=== PATIENT | male | born 2005 | race African-American/Black ===

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

== ENCOUNTER 2024-11-23 16:06 | Outpatient (CLI) | payer BC, SELFPAY | END 2024-11-23 16:07 | disposition home or self-care (01) | LOC: AMB 11-24 10:51 | PROVIDERS: Visit Provider Family Medicine | DX: R55 Syncope and collapse (principal); R11.2 Nausea with vomiting, unspecified; R50.9 Fever, unspecified | CPT/HCPCS: A0425; A0427 ==

== ENCOUNTER 2024-11-23 16:35 | Inpatient (IN) | payer BC, SELFPAY ==
[2024-11-23] VITALS (8 sets, daily range): BP systolic 97–113; BP diastolic 47–58; PULSE 72–125; RESP 18–28; TEMP 36.7–39.4; O2SAT 97–100; BMI 25.1; BMI 23.7
--- NOTE | 2024-11-23 16:57 | ED_ITS ---
HPI - General Adult General Time Seen by Provider: 16:57 Date Seen: 11/23/24 Chief complaint: Nausea/Vomiting Stated complaint: Vomiting Time Seen by Provider: 11/23/24 16:47 Source: patient, family (mom was on phone with him), EMS and RN notes reviewed Mode of arrival: EMS Limitations: no limitations History of Present Illness HPI narrative: This 19-year-old male is brought in by EMS from urgent care where the ambulance was called due to syncope/collapse. This 19-year-old male started with nausea vomiting and diarrhea overnight. He collapse in the waiting room. He was complaining of his legs being numb. Arrival here he was extremely tachypneic and hyperventilating. He was noted to be febrile. He is not coughing. It is just the nausea vomiting diarrhea. He did not take his temperature but has felt chilled and cold. No abdominal pain. He is a college student at [employer]. He was home in [place] not too long ago but no other travel. No known ill contacts. He did take some ibuprofen around 10:00 a.m. this morning. EMS did give him 500 mL normal saline and 4 mg IV Zofran. He continues to feel nauseated. His mom is on the phone with him as I talked to him and evaluated him. Related Data Home Medications ?Medication ?Instructions ?Recorded ?Confirmed minocycline 50 mg capsule 50 mg PO QDAY 10/02/23 04/12/24 polyethylene glycol 3350 17 4 g PO ONCE 10/02/23 04/12/24 gram/dose oral powder (Miralax) Previous Rx's ?Medication ?Instructions ?Recorded ondansetron 4 mg disintegrating 4 mg PO Q8H PRN nausea and 10/02/23 tablet vomiting #14 tabs Allergies Allergy/AdvReac Type Severity Reaction Status Date / Time No Known Drug Allergies Allergy Verified 04/12/24 15:40 Review of Systems Status of ROS: Reports: 6 or more systems reviewed and unremarkable except as noted in History and below [facility] Medical History No significant past medical history Surgical History No significant past surgical history Social History What is your current living situation?: I presently have a place to live Problems where you live: no known problems Problems where you live details: n/a In the past 12 months, utilities in danger of being shut off: no In past 12 months, lack of transportation kept you from medical appts, meetings, work, or getting things needed for daily living: no In the past 12 mos, have been you worried that your food would run out before you had money to buy more?: never true In the past 12 mos, the food you bought just didn't last and you didn't have money to buy more?: never true Highest level of school completed/degree received: some college, no degree Smoking Status: Never smoker Second hand tobacco smoke exposure: No How often do you have a drink containing alcohol: never How often do you have six or more drinks on one occasion: Never AUDIT-C Alcohol total score: 0 Non-prescribed substance use: denies use Caffeine: No How often does anyone, including family, friends and others, physically hurt you : never How often does anyone, including family, friends and others, insult or talk down to you: never How often does anyone, including family, friends and others, threaten you with harm: never How often does anyone, including family, friends and others, scream or curse at you: never service: No Exam Const: Vital Signs, click to edit/add: Vital Signs - 24 hr 11/23/24 16:45 11/23/24 16:58 11/23/24 17:27 Temperature 101.0 F H Pulse Rate [Pulse Oximeter] 125 H 100 Respiratory Rate 28 H 20 Blood Pressure [Ri ght Upper Arm] 110/51 L 110/51 L Pulse Oximetry 100 100 100 Oxygen Delivery Me thod Room Air Room Air 11/23/24 17:46 Temperature 102.9 F H Pulse Rate [Pulse Oximeter] Respiratory Rate Blood Pressure [Ri ght Upper Arm] Pulse Oximetry Oxygen Delivery Me thod This 19-year-old male is retching before I come in, having dry heaves, stops while I am in with him but he complains of ongoing nausea. He is alert, interactive, no apparent distress but looks like he does not feel good. Skin is warm feeling but dry, no rash noted. Sclera clear, conjugate gaze. Oropharynx dry mucosa, lips dry. Neck is supple, no adenopathy. Lungs are clear, good air entry, no wheezing or crackles. He has generalized tenderness over the paraspinous area throughout his back. No point tenderness over the midline noted. Abdomen is slender, soft, nondistended, bowel sounds present, no tenderness, no rebound or guarding noted. He can move his arms and legs, no focal neurologic deficits. Documenting provider has reviewed patient's vital signs: yes Course Course ED Course: This patient has febrile illness with nausea vomiting and diarrhea. Could be viral gastroenteritis, could be 1 of the viral etiologies such as influenza or even COVID. I have seen influenza B and COVID recently. Will give him further IV fluids, may need further antiemetic treatment. Do not feel that he needs any imaging at this time. Will get basic labs and check triple viral swab. We will do further workup or interventions as deemed necessary based on evaluation here. Will also give him some IV Toradol to see if it helps with his myalgias. Will order Tylenol but have nursing staff wait until his nausea and vomiting have improved. Do believe he needs this for fever control. Reevaluation(s) Time of Reevaluation #1: 17:04 Reevaluation #1: Patient is continuing to retch despite the 4 mg IV Zofran from EMS. I will give him another 4 mg IV Zofran for full dose loading, but also will give 0.5 mg IV Ativan. Time of Reevaluation #2: 17:58 Reevaluation #2: Have reviewed with patient his labs with creatinine 1.9, dehydration based on chemistries with low bicarb. Will order a 2 L of lactated Ringer's. He understands I would like to see urinalysis. We are going to proceed with CT imaging just to ensure no obstructive etiology. He has no history of kidney stones. He is feeling improved with diminished nausea now. Time of Reevaluation #3: 18:52 Reevaluation #3: Have reviewed with hospitalist Dr. Amador. With the acute kidney injury and dehydration, do think this patient warrants observation and ongoing IV fluids. It appears that this is a viral gastroenteritis. He does not have any obstructing kidney stones. Still awaiting collection of urinalysis, may need more fluids. She does accept patient. Vital Signs Vital signs: Initial Vital Signs Temperature 101.0 F H 11/23/24 16:45 Temperature Source Temporal Artery Scan 11/23/24 16:45 Pulse Rate 125 H 11/23/24 16:45 Pulse Rhythm Regular 11/23/24 16:45 Respiratory Rate 28 H 11/23/24 16:45 Blood Pressure 110/51 L 11/23/24 16:45 Blood Pressure Mean 70 11/23/24 16:45 Pulse Oximetry 100 11/23/24 16:45 Oxygen Delivery Method Room Air 11/23/24 16:45 Vital Signs Temperature 101.0 F H 11/23/24 16:45 Pulse Rate 125 H 11/23/24 16:45 Respiratory Rate 28 H 11/23/24 16:45 Blood Pressure 110/51 L 11/23/24 16:45 Pulse Oximetry 100 11/23/24 16:45 Oxygen Delivery Method Room Air 11/23/24 16:45 Temperature 98.0 F 11/23/24 22:43 Pulse Rate 72 11/23/24 22:43 Respiratory Rate 18 11/23/24 22:43 Blood Pressure 97/47 L 11/23/24 22:43 Pulse Oximetry 97 11/23/24 22:43 Oxygen Delivery Method Room Air 11/23/24 21:13 Medications Administered Medications: Generic Name Dose Route Start Last Admin Trade Name Freq PRN Reason Stop Dose Admin Ceftriaxone Sodium 1 gm/ 100 mls @ 200 mls/hr 11/23/24 22:00 11/23/24 22:37 Sodium Chloride IVPB Infused Q24H OLU Infusion Sodium Chloride 1,000 mls @ 125 mls/hr 11/23/24 22:13 11/23/24 22:39 0.9 % Sodium Chloride 1000 Ml IV 125 mls/hr .Q8H OLU Infusion Sodium Chloride 5 ml 11/23/24 21:00 11/23/24 20:34 Sodium Chloride 0.9 % (Flush) 10 Ml Syringe IVF 5 ml BID OLU Administration Discontinued Medications Generic Name Dose Route Start Last Admin Trade Name Freq PRN Reason Stop Dose Admin Acetaminophen 1,000 mg 11/23/24 17:31 11/23/24 17:46 Acetaminophen 500 Mg Tablet PO 11/23/24 17:32 1,000 mg ONCE ONE Administration Sodium Chloride 1,000 mls @ 1,000 mls/hr 11/23/24 16:58 11/23/24 18:31 0.9 % Sodium Chloride 1000 Ml IV 11/23/24 17:57 Infused .Q1H OLU Infusion Lactated Ringer's 1,000 mls @ 500 mls/hr 11/23/24 18:03 11/23/24 20:30 Lactated Ringers 1000 Ml IV 11/23/24 20:02 Infused .Q2H OLU Infusion Sodium Chloride 1,000 mls @ 100 mls/hr 11/23/24 19:53 11/23/24 22:37 0.9 % Sodium Chloride 1000 Ml IV Infused .Q10H OLU Infusion Ketorolac Tromethamine 15 mg 11/23/24 16:58 11/23/24 17:12 Ketorolac 15 Mg/Ml Inj IVP 11/23/24 16:59 15 mg ONCE ONE Administration Lorazepam 0.5 mg 11/23/24 17:04 11/23/24 17:23 Lorazepam 2 Mg/Ml Inj IVP 11/23/24 17:05 0.5 mg ONCE ONE Administration Ondansetron HCl 4 mg 11/23/24 16:58 11/23/24 17:13 Ondansetron 2 Mg/Ml Inj IVP 11/23/24 16:59 4 mg ONCE ONE Administration Medical Decision Making Lab Data Lab results reviewed: Yes I reviewed the patient's lab results Labs: Lab Results 11/23/24 Range/Units 17:15 WBC 12.44 H (4.50-11.00) K/uL RBC 5.04 (4.30-5.90) m/uL Hgb 14.6 (13.5-17.5) gm/dL Hct 42.6 (37.0-53.0) % MCV 85 (80-100) fL MCH 29 (26-34) pg MCHC 34 (32-36) gm/dL RDW Coeff of Laxmi 12.7 (11.5-15.5) % Plt Count 269 (140-440) K/uL Neut % (Auto) 89.4 H (42.0-72.0) % Lymph % (Auto) 4.9 L (20-44) % Douglas % (Auto) 5.0 (0.0-11.0) % Eos % (Auto) 0.0 (0.0-7.0) % Baso % (Auto) 0.2 (0.0-3.0) % Neut # (Auto) 11.10 H (1.7-7.0) K/uL Lymph # (Auto) 0.60 L (0.90-2.90) K/uL Douglas # (Auto) 0.60 (0.00-0.90) K/UL Eos # (Auto) 0.00 (0.00-0.50) K/uL Baso # (Auto) 0.00 (0.00-0.30) K/uL Abs Immat Gran (auto) 0.10 (0.00-0.30) K/uL Imm/Tot Granulo (auto) 0.5 % Sodium 137 (135-149) mmol/L Potassium 3.8 (3.6-5.1) mmol/L Chloride 105 (96-114) mmol/L Carbon Dioxide 16 L (20-32) mmol/L Anion Gap 16 H (7-15) mEq/L BUN 16 (5-24) mg/dL Creatinine 1.9 H (0.5-1.5) mg/dL Estimated Creat Clear 60.00 Estimated GFR 51 ml/min Glucose 120 H (60-115) mg/dL Lactate 2.2 H (0.5-1.9) mmol/L Calcium 9.3 (8.4-10.6) mg/dL Total Bilirubin 1.2 (0.1-1.5) mg/dL AST 33 (12-35) U/L ALT 20 (4-50) U/L Alkaline Phosphatase 85 (40-150) U/L C-Reactive Protein 3.5 H (0.5-1.0) mg/dL Total Protein 7.3 (6.0-8.3) g/dL Albumin 4.7 (3.3-5.0) g/dL Lipase 48 (23-300) U/L SARS-CoV-2 (PCR) Negative SARS-CoV-2 (Negative) Influenza Type A (PCR) Negative PCR FLU A (Negative) Influenza Type B (PCR) Negative PCR FLU B (Negative) RSV (PCR) Negative PCR RSV (Negative) Imaging Data CT scan - abdomen: Attestation: I have reviewed the pertinent imaging results. Radiologist's impression: Patient: MARIMAR FRITZ Facility:?[facility] Patient ID:?[id number] Site Patient ID:?[id number]. Site :?[id number] Study:?CT-Abdomen/Pelvis WITHOUT-11/23/2024 6:15:15 PM Ordering Physician:Fabien Robbins Final Report: INDICATION: Fever, TALISHA, rule out obstruction. TECHNIQUE: CT of the abdomen and pelvis without IV contrast. Coronal and sagittal reconstructions. COMPARISON: CT of the abdomen and pelvis 03/19/2023. FINDINGS: Lower chest: Unremarkable. Liver: Unremarkable. Gallbladder and bile ducts: Unremarkable. No biliary dilatation. Spleen: Unremarkable. Pancreas: Unremarkable. Adrenal glands: Unremarkable. Kidneys, Ureters, and Bladder: No hydronephrosis or ureteral dilation. No obstructing urinary calculi identified. Tiny nonobstructing right renal caliceal stone. No bladder wall thickening. Reproductive organs: Unremarkable noncontrast appearance. GI tract/Peritoneum: No small bowel dilation. The ascending colon is fluid- filled, with formed stool in the rectosigmoid colon. No significant colonic wall thickening appreciated. A possible normal appendix is identified medial to the cecum. No intraperitoneal free air or fluid. Vasculature: Abdominal aorta is normal in caliber. Lymph nodes: No lymphadenopathy. Abdominal Wall: Unremarkable. Bones: Bilateral L5 pars interarticularis defects without spondylolisthesis. IMPRESSION: 1. No hydronephrosis or obstructing urinary calculi. Tiny nonobstructing right renal caliceal stone. 2. Fluid-filled ascending colon which could indicate an underlying diarrheal illness. No evidence of bowel obstruction. 3. No other acute findings in the abdomen or pelvis on this noncontrast exam. Please note that all CT scans at this facility use dose modulation, iterative reconstruction, and/or weight-based dosing when appropriate to reduce radiation dose to as low as reasonably achievable. Dictated by Yasmin Griffin MD @ 11/23/2024 6:30:28 PM (Electronic Signature) Discharge Plan Discharge Clinical Impression: Gastroenteritis, Dehydration, Acute kidney injury Patient Disposition: Admitted As Observation
[2024-11-23] MEDS: 0.9 % SODIUM CHLORIDE 1000 ml 1,000 ML IV (17:08)
[2024-11-23] MEDS: KETOROLAC 15 MG/ML inj IVP (17:12)
[2024-11-23] MEDS: ONDANSETRON 2 MG/ML inj 4 MG IVP (17:13)
[2024-11-23 17:23] LABS: Lactate* 2.2 mmol/L (0.5-1.9)
[2024-11-23] MEDS: LORazepam 2 MG/ML inj 0.5 MG IVP (17:23)
[2024-11-23 17:25] LABS: Basophils Percent Auto 0.2 % (0.0-3.0); Hematocrit* 42.6 % (37.0-53.0); Hemoglobin* 14.6 gm/dL (13.5-17.5); Immature Granulocytes Pct Auto 0.5 %; Lymphocytes Percent Auto 4.9 % (20-44); Mean Corpuscular HGB Conc 34 gm/dL (32-36); Mean Corpuscular Hemoglobin 29 pg (26-34); Mean Corpuscular Volume 85 fL (80-100); Neutrophils Percent Auto 89.4 % (42.0-72.0); Platelet Count* 269 K/uL (140-440); RDW Coefficient of Variation % 12.7 % (11.5-15.5); Red Blood Count* 5.04 m/uL (4.30-5.90); White Blood Count* 12.44 K/uL (4.50-11.00)
[2024-11-23 17:31] LABS: Slide Review Reflex No
[2024-11-23 17:36] LABS: Chloride* 105 mmol/L (96-114)
[2024-11-23 17:37] LABS: Albumin* 4.7 g/dL (3.3-5.0); Potassium* 3.8 mmol/L (3.6-5.1); Sodium* 137 mmol/L (135-149)
[2024-11-23 17:39] LABS: Blood Urea Nitrogen* 16 mg/dL (5-24); Creatinine* 1.9 mg/dL (0.5-1.5); Estimated Glomerular Filt Rate 51 ml/min
[2024-11-23 17:40] LABS: Alanine Aminotransferase* 20 U/L (4-50); Alkaline Phosphatase* 85 U/L (40-150); Anion Gap 16 mEq/L (7-15); Aspartate Amino Transferase* 33 U/L (12-35); Bilirubin Total* 1.2 mg/dL (0.1-1.5); Calcium* 9.3 mg/dL (8.4-10.6); Carbon Dioxide* 16 mmol/L (20-32); Glucose* 120 mg/dL (60-115); Lipase* 48 U/L (23-300); Total Protein* 7.3 g/dL (6.0-8.3)
[2024-11-23 17:43] LABS: C Reactive Protein* 3.5 mg/dL (0.5-1.0)
[2024-11-23] MEDS: ACETAMINOPHEN 500 MG TABLET 1000 MG PO (17:46)
--- NOTE | 2024-11-23 17:57 | CRLHL7_ITS ---
For Patients: As a result of the Cures Act, medical imaging exams and procedure reports are released immediately into your electronic medical record. You may view this report before your referring provider. If you have questions, please contact your health care provider. INDICATION: Fever, TALISHA, rule out obstruction. TECHNIQUE: CT of the abdomen and pelvis without IV contrast. Coronal and sagittal reconstructions. COMPARISON: CT of the abdomen and pelvis 03/19/2023. FINDINGS: Lower chest: Unremarkable. Liver: Unremarkable. Gallbladder and bile ducts: Unremarkable. No biliary dilatation. Spleen: Unremarkable. Pancreas: Unremarkable. Adrenal glands: Unremarkable. Kidneys, Ureters, and Bladder: No hydronephrosis or ureteral dilation. No obstructing urinary calculi identified. Tiny nonobstructing right renal caliceal stone. No bladder wall thickening. Reproductive organs: Unremarkable noncontrast appearance. GI tract/Peritoneum: No small bowel dilation. The ascending colon is fluid-filled, with formed stool in the rectosigmoid colon. No significant colonic wall thickening appreciated. A possible normal appendix is identified medial to the cecum. No intraperitoneal free air or fluid. Vasculature: Abdominal aorta is normal in caliber. Lymph nodes: No lymphadenopathy. Abdominal Wall: Unremarkable. Bones: Bilateral L5 pars interarticularis defects without spondylolisthesis. IMPRESSION: 1. No hydronephrosis or obstructing urinary calculi. Tiny nonobstructing right renal caliceal stone. 2. Fluid-filled ascending colon which could indicate an underlying diarrheal illness. No evidence of bowel obstruction. 3. No other acute findings in the abdomen or pelvis on this noncontrast exam. Please note that all CT scans at this facility use dose modulation, iterative reconstruction, and/or weight-based dosing when appropriate to reduce radiation dose to as low as reasonably achievable. Dictated by Yasmin Griffin MD @ 11/23/2024 6:30:28 PM (Electronically Signed)
[2024-11-23 18:03] LABS: PCR FLU A Negative PCR FLU A (Negative); PCR FLU B Negative PCR FLU B (Negative); PCR RSV Negative PCR RSV (Negative); SARS PCR* Negative SARS-CoV-2 (Negative)
[2024-11-23] MEDS: LACTATED RINGERS 1000 ML 1,000 ML 500 ML IV (18:26)
--- NOTE | 2024-11-23 19:52 | P.IMHP_ITS ---
Assessment and Plan Assessment and plan (1) Sepsis: Problem comment: -patient meets criteria for sepsis with white blood cells and tachycardia -lactic acid elevated at 2.2 -ordered blood cultures -status post 2 L IV fluids -maintenance IV fluid ordered at 100 mL/hour. -will start IV antibiotics , ceftriaxone 1 g, as patient is septic. Will deescalate once patient improves, will follow up blood cultures. -follow-up labs Status: Acute (2) Acute kidney injury: Problem comment: Likely secondary to dehydration Status post 2 L IV fluid bolus Maintenance IV fluid at 100 mL/hour Repeat labs at a.m. Status: Acute (3) Nausea vomiting and diarrhea: Problem comment: Ordered GI pathogen PCR Contact precautions Status: Acute (4) Fever: Problem comment: Likely viral infection Ordered urinalysis Ordered GI pathogen panel Status: Acute (5) Syncope: Problem comment: Patient has lightheadedness, likely secondary to volume loss Ordered orthostatic vital signs IV fluids Status: Acute (6) Dehydration: Status: Acute Total Time Spent Total Time Spent: Time spent: Today I spent 75 minutes seeing the patient, discussing the patient with ER staff, reviewing Expanse and EPIC notes/diagnostics, discussing the care plan with our care time that includes social work, PT/OT, pharmacy, RT, assisted and documenting my impressions and plan in the medical record. Hospitalist- H&P: HPI History of Present Illness Date Seen: 11/23/24 Chief complaint: Vomiting Narrative: Peter Krishnan is a 19 year old male student without significant past medical history who presents to the ED due to fainting, nausea vomiting and diarrhea for 1 day. He states that he had about 3 watery bowel movements without blood or mucus. He also added that he had nausea and had been vomiting more than 10 times. Patient states that he has some abdominal discomfort but not pain, no sick contacts and no history of travel outside the states. No history of chronic diarrhea. No history of STDs. No history of alcohol, street drugs or marijuana use. Denies neck stiffness or photophobia. At the ED, Patient was found to be feverish with temperature of 102.9, tachycardic and acidotic with low bicarb at 16, mild elevation of the anion gap, elevated lactic acid at 2.2 and elevated white blood cells. CT of the abdomen without contrast did not show any acute pathology. Patient was given 2 L of IV fluids at the ED in addition to 1 dose of Ativan and Zofran because he was tachypneic upon presentation, which has improved after Ativan. Review of Systems Status of ROS: Reports: 6 or more systems reviewed and unremarkable except as noted in History and below [facility] Medical History No significant past medical history Surgical History No significant past surgical history Social History What is your current living situation?: I presently have a place to live Problems where you live: no known problems Problems where you live details: n/a In the past 12 months, utilities in danger of being shut off: no In past 12 months, lack of transportation kept you from medical appts, meetings, work, or getting things needed for daily living: no In the past 12 mos, have been you worried that your food would run out before you had money to buy more?: never true In the past 12 mos, the food you bought just didn't last and you didn't have money to buy more?: never true Highest level of school completed/degree received: some college, no degree Smoking Status: Never smoker Second hand tobacco smoke exposure: No How often do you have a drink containing alcohol: never How often do you have six or more drinks on one occasion: Never AUDIT-C Alcohol total score: 0 Non-prescribed substance use: denies use Caffeine: No How often does anyone, including family, friends and others, physically hurt you : never How often does anyone, including family, friends and others, insult or talk down to you: never How often does anyone, including family, friends and others, threaten you with harm: never How often does anyone, including family, friends and others, scream or curse at you: never service: No Meds Home Medications and Allergies Home Medications ?Medication ?Instructions ?Recorded ?Confirmed ?Type minocycline 50 mg capsule 50 mg PO QDAY 10/02/23 04/12/24 History polyethylene glycol 3350 17 4 g PO ONCE 10/02/23 04/12/24 History gram/dose oral powder (Miralax) Allergies Allergy/AdvReac Type Severity Reaction Status Date / Time No Known Drug Allergies Allergy Verified 04/12/24 15:40 Exam Narrative: Exam Narrative: Physical exam GENERAL: Comfortable, no acute distress. HEAD AND NECK: Atraumatic, normocephalic CARDIOVASCULAR: RRR. Normal S1, S2. No murmurs. RESPIRATORY: Clear to auscultation B/L. Good air entry B/L. No wheezes or rhonchi. GASTROINTESTINAL: Not distended, not tender to palpation. NEUROLOGY: Alert, awake, oriented X 3. Normal speech. PSYCH: Normal mood, normal affect. Const: Vital Signs, click to edit/add: Vital Signs - 24 hr 11/23/24 16:45 11/23/24 16:58 11/23/24 17:27 Temperature 101.0 F H Pulse Rate [Pulse Oximeter] 125 H 100 Respiratory Rate 28 H 20 Blood Pressure [Ri ght Upper Arm] 110/51 L 110/51 L Pulse Oximetry 100 100 100 Oxygen Delivery Wa thod Room Air Room Air 11/23/24 17:46 Temperature 102.9 F H Pulse Rate [Pulse Oximeter] Respiratory Rate Blood Pressure [Ri ght Upper Arm] Pulse [facility]ximetry [facility]: Result Labs Labs: Short CBC 11/23/24 Range/Units 17:15 WBC 12.44 H (4.50-11.00) K/uL Hgb 14.6 (13.5-17.5) gm/dL Hct 42.6 (37.0-53.0) % Plt Count 269 (140-440) K/uL BMP 11/23/24 17:15 Sodium 137 Potassium 3.8 Chloride 105 Carbon Dioxide 16 L BUN 16 Creatinine 1.9 H Glucose 120 H Calcium 9.3 Liver Function 11/23/24 Range/Units 17:15 Total Bilirubin 1.2 (0.1-1.5) mg/dL AST 33 (12-35) U/L ALT 20 (4-50) U/L Alkaline Phosphatase 85 (40-150) U/L Albumin 4.7 (3.3-5.0) g/dL Imaging CT scan - abdomen: Radiologist's impression: INDICATION: Fever, TALISHA, rule out obstruction. TECHNIQUE: CT of the abdomen and pelvis without IV contrast. Coronal and sagittal reconstructions. COMPARISON: CT of the abdomen and pelvis 03/19/2023. FINDINGS: Lower chest: Unremarkable. Liver: Unremarkable. Gallbladder and bile ducts: Unremarkable. No biliary dilatation. Spleen: Unremarkable. Pancreas: Unremarkable. Adrenal glands: Unremarkable. Kidneys, Ureters, and Bladder: No hydronephrosis or ureteral dilation. No obstructing urinary calculi identified. Tiny nonobstructing right renal caliceal stone. No bladder wall thickening. Reproductive organs: Unremarkable noncontrast appearance. GI tract/Peritoneum: No small bowel dilation. The ascending colon is fluid-filled, with formed stool in the rectosigmoid colon. No significant colonic wall thickening appreciated. A possible normal appendix is identified medial to the cecum. No intraperitoneal free air or fluid. Vasculature: Abdominal aorta is normal in caliber. Lymph nodes: No lymphadenopathy. Abdominal Wall: Unremarkable. Bones: Bilateral L5 pars interarticularis defects without spondylolisthesis. IMPRESSION: 1. No hydronephrosis or obstructing urinary calculi. Tiny nonobstructing right renal caliceal stone. 2. Fluid-filled ascending colon which could indicate an underlying diarrheal illness. No evidence of bowel obstruction. 3. No other acute findings in the abdomen or pelvis on this noncontrast exam. Please note that all CT scans at this facility use dose modulation, iterative reconstruction, and/or weight-based dosing when appropriate to reduce radiation dose to as low as reasonably achievable. Dictated by Yasmin Griffin MD @ 11/23/2024 6:30:28 PM
[2024-11-23] MEDS: 0.9 % SODIUM CHLORIDE 1000 ml 1,000 ML 100 ML IV (20:31)
[2024-11-23] MEDS: SODIUM CHLORIDE 0.9 % (FLUSH) 10 ML SYRINGE 5 ML IVF (20:34)
[2024-11-23 21:10] LABS: Appearance Urine Clear (Clear); Bilirubin Urine Negative (Negative); Blood Urine Negative (Negative); Color Urine Yellow (Yellow); Glucose Urine Negative (Negative); Ketones Urine 2+ (Negative); Leukocyte Esterase Urine Negative (Negative); Nitrite Urine Negative (Negative); Protein Urine Trace (Negative); Specific Gravity Urine 1.015 (1.000-1.030); Urobilinogen Urine 0.2 (0.2-1.0); pH Urine 8.5 (5.0-8.5)
[2024-11-23 21:16] LABS: Mucus Urine Few; RBC Urine 0-2 (0-2); Squamous Epithelial Cell Urine Few (None-Few); WBC Urine 0-2 (0-5)
[2024-11-23] MEDS: cefTRIAXone 1 GM in 0.9 % SODIUM CHLORIDE Mini-bag 100 ML IVPB (22:05)
[2024-11-23] MEDS: 0.9 % SODIUM CHLORIDE 1000 ml 1,000 ML 125 ML IV (22:38)
[2024-11-24] VITALS (13 sets, daily range): BP systolic 102–129; BP diastolic 50–70; PULSE 64–126; RESP 16–22; TEMP 36.4–39.3; O2SAT 97–100
[2024-11-24] MEDS: ONDANSETRON ODT 4 MG TAB PO (00:43)
[2024-11-24] MEDS: ONDANSETRON 2 MG/ML inj 4 MG IVP ×2 (02:00→11:16)
[2024-11-24] MEDS: LORazepam 2 MG/ML inj 0.5 MG IVP (02:53)
[2024-11-24] MEDS: ACETAMINOPHEN INJ 1,000 MG/100 ML VIAL 400 MG IVPB (02:54)
[2024-11-24] MEDS: 0.9 % SODIUM CHLORIDE 1000 ml 1,000 ML 125 ML IV ×3 (05:22→22:25)
--- NOTE | 2024-11-24 06:31 | PC.NURSE ---
arrived to the floor via wheelchair at 1930. A&O pleasant and cooperative. Upon initial assessment pt denies n/v but reports dizziness at rest. Dizziness persisted all shift. Hypotensive at times. MD updated. Overnight pt reported nausea and was dry heaving. See eMAR for intervention. Provider contacted for different antiemetic. See orders. Pt reported no change in nausea with IV zorfran. At this time pt spiked a fever of 102.7 w/ HR in 120s-130s. Provider updated. See new orders. Temp recheck 100.1. pt appears more comfortable and pt sates they are feeling better. Pt sitting up in bed talking in the phone at this time. Temp down to 97.9 this morning. Ambulated to bathroom once and was quite unsteady and dizzy. The rest of the night pt standing at bedside to use urinal. Bedside commode used to have a BM. Pt reports anxiety with feeling ill and with college finals approaching. Meal Temperer sat with pt and with deep breathing techniques. Updated mother, heath via phone last evening. Using call light appropriately.
[2024-11-24 06:40] LABS: Lactate* 0.7 mmol/L (0.5-1.9)
[2024-11-24 06:49] LABS: Hematocrit* 40.2 % (37.0-53.0); Hemoglobin* 13.5 gm/dL (13.5-17.5); Mean Corpuscular HGB Conc 34 gm/dL (32-36); Mean Corpuscular Hemoglobin 29 pg (26-34); Mean Corpuscular Volume 87 fL (80-100); Platelet Count* 218 K/uL (140-440)
[2024-11-24 06:53] LABS: Slide Review Reflex No
[2024-11-24 07:03] LABS: Albumin* 3.5 g/dL (3.3-5.0); Chloride* 109 mmol/L (96-114); Sodium* 138 mmol/L (135-149)
[2024-11-24 07:05] LABS: Blood Urea Nitrogen* 15 mg/dL (5-24); Creatinine* 1.4 mg/dL (0.5-1.5); Est. Creatinine Clearance* 81.43; Estimated Glomerular Filt Rate 74 ml/min
[2024-11-24 07:06] LABS: Alanine Aminotransferase* 14 U/L (4-50); Alkaline Phosphatase* 59 U/L (40-150); Anion Gap 7 mEq/L (7-15); Aspartate Amino Transferase* 29 U/L (12-35); Bilirubin Total* 0.7 mg/dL (0.1-1.5); Calcium* 8.2 mg/dL (8.4-10.6); Carbon Dioxide* 22 mmol/L (20-32); Glucose* 111 mg/dL (60-115); Magnesium* 1.9 mg/dL (1.5-2.6); Total Protein* 5.8 g/dL (6.0-8.3)
[2024-11-24] MEDS: SODIUM CHLORIDE 0.9 % (FLUSH) 10 ML SYRINGE 5 ML IVF (08:24)
[2024-11-24] MEDS: PROCHLORPERAZINE 5 MG/ML VIAL 10 MG IV (08:24)
[2024-11-24 08:46] LABS: Amphetamine Screen Urine Negative (Negative); Barbiturate Screen Urine Negative (Negative); Benzodiazepines Screen Urine Negative (Negative); Cannabinoid Screen Urine Negative (Negative); Cocaine Screen Urine Negative (Negative); Methadone Screen Urine Negative (Negative); Methamphetamines Screen Urine Negative (Negative); Opiate Screen Urine Negative (Negative); Oxycodone Screen Urine Negative (Negative); Phencyclidine Screen Urine Negative (Negative); Tricyclic Antidepressant Urine Negative (Negative)
[2024-11-24] MEDS: AZITHROMYCIN 250 MG TABLET 1000 MG PO (09:39)
[2024-11-24 09:46] LABS: HIV 1/2/P24 Combo Screen* Negative (Negative)
[2024-11-24] MEDS: ACETAMINOPHEN 325 MG TABLET 650 MG PO (11:16)
--- NOTE | 2024-11-24 11:59 | P.IMPN_ITS ---
Assessment and Plan Assessment and plan (1) Sepsis: Problem comment: -source is likely either viral or bacterial gastroenteritis, potentially bacteremic -patient meets criteria for sepsis with white blood cells and tachycardia -lactic acid elevated at 2.2 initially and now is normal at 0.7 -2 blood cultures are negative to date -patient has had normal saline fluid resuscitation -patient has received 1 oral dose of azithromycin and continues to receive 1 g ceftriaxone Q 24 Status: Acute (2) Acute kidney injury: Problem comment: Likely secondary to pre renal azotemia Mostly resolved after fluid resuscitation, 1.9 down to 1.4 creatinine Status: Acute (3) Nausea vomiting and diarrhea: Problem comment: Ordered GI pathogen PCR Contact precautions Status: Acute (4) Fever: Problem comment: Likely viral versus bacterial gastroenteritis -negative respiratory triple swab and negative HIV Ordered urinalysis Ordered GI pathogen panel Status: Acute (5) Syncope: Problem comment: Resolved Patient has lightheadedness, likely secondary to volume loss Ordered orthostatic vital signs IV fluids Status: Acute (6) Dehydration: Problem comment: Resolving Status: Acute Subjective Date Seen: 11/24/24 Interval history: Day #: 2 CC: Sepsis presentation with acute gastroenteritis 24 HOUR UPDATE: Was admitted last evening. Last stool was around midnight. He has had some dry heaves, left vomiting since admission. He has remained on IV fluids. His lab abnormalities have mostly resolved. He still complaining of nausea, headache, weakness, anorexia and some stomach cramping. We are administering IV Compazine and Zofran, oral Tylenol. He received 1 dose of oral azithromycin. He continues to receive ceftriaxone IV. His fluids are normal saline at 125 mL/hour. He is not really attempted anything more than ice chips. He lives in the dorms at the local [facility]. Notable Labs, Micro, Rads, Interventions: T-max since midnight is 102.7. Currently 977. His blood pressures remain soft 106/63 108/56 He is less tachycardic now he is in the 60s Respiratory rate has come down to 16. He is satting 98% on room air. His white count is still elevated 12.4-12.5 His electrolytes are now normal. No evidence of acidosis. His creatinine is 1.4 His lactate has normalized His liver enzyme panel is normal. His CRP has increased from 3.5-13 His PCR for GI pathogens is pending. Neg HIV Objective: exhausted appearing; sleeping. Vitals: see above Lungs: Clear. Cardiac: S1S2. Abdomen: soft. No guarding. Disposition/Potential discharge - Home to the dorms when improved Today I spent 50minutes seeing the patient, reviewing Expanse and EPIC notes/diagnostics, discussing the care plan with our care time that includes social work, PT/OT, pharmacy, RT, mcc and documenting my impressions and plan in the medical record. Exam Const: Vital Signs, click to edit/add: Vital Signs - 24 hr 11/23/24 16:45 11/23/24 16:58 11/23/24 17:27 Temperature 101.0 F H Pulse Rate Pulse Rate [Pulse Oximeter] 125 H 100 Pulse Rate [orthos tatic lying] Pulse Rate [orthos tatic sitting] Pulse Rate [orthos tatic standing] Respiratory Rate 28 H 20 Blood Pressure [Ri ght Arm] Blood Pressure [Ri ght Upper Arm] 110/51 L 110/51 L Blood Pressure [or thostatic lying] Blood Pressure [or thostatic sitting] Blood Pressure [or thostatic standing ] Pulse Oximetry 100 100 100 Oxygen Delivery Me thod Room Air Room Air 11/23/24 17:46 11/23/24 21:13 11/23/24 21:20 Temperature 102.9 F H 98.5 F Pulse Rate Pulse Rate [Pulse Oximeter] 90 Pulse Rate [orthos tatic lying] 84 Pulse Rate [orthos tatic sitting] 96 Pulse Rate [orthos tatic standing] 89 Respiratory Rate 20 Blood Pressure [Ri ght Arm] Blood Pressure [Ri ght Upper Arm] Blood Pressure [or thostatic lying] 103/47 L Blood Pressure [or thostatic sitting] 113/58 L Blood Pressure [or thostatic standing ] 113/56 L Pulse Oximetry 100 Oxygen Delivery Me thod Room Air 11/23/24 22:40 11/23/24 22:43 11/24/24 01:23 Temperature 98.0 F 98.6 F Pulse Rate 72 Pulse Rate [Pulse Oximeter] 72 117 H Pulse Rate [orthos tatic lying] Pulse Rate [orthos tatic sitting] Pulse Rate [orthos tatic standing] Respiratory Rate 18 20 Blood Pressure [Ri ght Arm] 97/47 L 129/70 Blood Pressure [Ri ght Upper Arm] Blood Pressure [or thostatic lying] Blood Pressure [or thostatic sitting] Blood Pressure [or thostatic standing ] Pulse Oximetry 97 [facility] 11/24/24 02:24 11/24/24 02:54 11/24/24 03:53 Temperature 102.7 F H 102.7 F H 100.1 F H Pulse Rate Pulse Rate [Pulse Oximeter] 126 H 95 Pulse Rate [orthos tatic lying] Pulse Rate [orthos tatic sitting] Pulse Rate [orthos tatic standing] Respiratory Rate 22 Blood Pressure [Ri ght Arm] 104/58 L Blood Pressure [Ri ght Upper Arm] Blood Pressure [or thostatic lying] Blood Pressure [or thostatic sitting] Blood Pressure [or thostatic standing ] Pulse Oximetry [facility] 11/24/24 03:54 11/24/24 06:17 11/24/24 07:00 Temperature 100.1 F H 97.9 F Pulse Rate 67 Pulse Rate [Pulse Oximeter] 69 Pulse Rate [orthos tatic lying] Pulse Rate [orthos tatic sitting] Pulse Rate [orthos tatic standing] Respiratory Rate Blood Pressure [Ri ght Arm] Blood Pressure [Ri ght Upper Arm] Blood Pressure [or thostatic lying] Blood Pressure [or thostatic sitting] Blood Pressure [or thostatic standing ] Pulse Oximetry Oxygen Delivery [facility] 11/24/24 07:00 11/24/24 11:16 Temperature 97.5 F L 97.7 F Pulse Rate Pulse Rate [Pulse Oximeter] 78 Pulse Rate [orthos tatic lying] Pulse Rate [orthos tatic sitting] Pulse Rate [orthos tatic standing] Respiratory Rate 18 Blood Pressure [Ri ght Arm] 108/56 L Blood Pressure [Ri ght Upper Arm] Blood Pressure [or thostatic lying] Blood Pressure [or thostatic sitting] Blood Pressure [or thostatic standing ] Pulse Oximetry 98 [facility] Labs: Laboratory Results - last 24 hr 11/23/24 11/23/24 11/23/24 17:15 17:56 Unknown WBC 12.44 H RBC 5.04 Hgb 14.6 Hct 42.6 MCV 85 MCH 29 MCHC 34 RDW Coeff of Laxmi 12.7 Plt Count 269 Neut % (Auto) 89.4 H Lymph % (Auto) 4.9 L [place] % (Auto) 5.0 Eos % (Auto) 0.0 Baso % (Auto) 0.2 Neut # (Auto) 11.10 H Lymph # (Auto) 0.60 L [place] # (Auto) 0.60 Eos # (Auto) 0.00 Baso # (Auto) 0.00 Abs Immat Gran (auto) 0.10 Imm/Tot Granulo (auto) 0.5 Sodium 137 Potassium 3.8 Chloride 105 Carbon Dioxide 16 L Anion Gap 16 H BUN 16 Creatinine 1.9 H Estimated Creat Clear 60.00 Estimated GFR 51 Glucose 120 H Lactate 2.2 H Calcium 9.3 Magnesium Total Bilirubin 1.2 AST 33 ALT 20 Alkaline Phosphatase 85 C-Reactive Protein 3.5 H Total Protein 7.3 Albumin 4.7 Lipase 48 Urine Color Yellow Urine Appearance Clear Urine pH 8.5 Ur Specific [place] 1.015 Urine Protein Trace A Urine Glucose (UA) Negative Urine Ketones 2+ A Urine Blood Negative Urine Nitrite Negative Urine Bilirubin Negative Urine Urobilinogen 0.2 Ur Leukocyte Esterase Negative Urine RBC 0-2 Urine WBC 0-2 Ur Squamous Epith Cells Few Urine Bacteria None Urine Mucus Few A Urine Opiates Screen Negative Ur Oxycodone Screen Negative Urine Methadone Screen Negative Ur Barbiturates Screen Negative U Tricyclic Antidepress Negative Ur Phencyclidine Scrn Negative Ur Amphetamines Screen Negative U Methamphetamines Scrn Negative U Benzodiazepines Scrn Negative Urine Cocaine Screen Negative U Marijuana (THC) Screen Negative Ur Drug Screen Comment See Note SARS-CoV-2 (PCR) Negative SARS-CoV-2 HIV 1&2 Ab/P24 Ag 4thGn Influenza Type A (PCR) Negative PCR FLU A Influenza Type B (PCR) Negative PCR FLU B RSV (PCR) Negative PCR RSV Lab Acknowledgement 11/24/24 11/24/24 06:33 08:09 WBC 12.50 H RBC 4.60 Hgb 13.5 Hct 40.2 MCV 87 MCH 29 MCHC 34 RDW Coeff of Laxmi Plt Count 218 Neut % (Auto) Lymph % (Auto) [place] % (Auto) Eos % (Auto) Baso % (Auto) Neut # (Auto) Lymph # (Auto) [place] # (Auto) Eos # (Auto) Baso # (Auto) Abs Immat Gran (auto) Imm/Tot Granulo (auto) Sodium 138 Potassium 4.0 Chloride 109 Carbon Dioxide 22 Anion Gap 7 BUN 15 Creatinine 1.4 Estimated Creat Clear 81.43 Estimated GFR 74 Glucose 111 Lactate 0.7 Calcium 8.2 L Magnesium 1.9 Total Bilirubin 0.7 AST 29 ALT 14 Alkaline Phosphatase 59 C-Reactive Protein 13.0 H Total Protein 5.8 L Albumin 3.5 Lipase Urine Color Urine Appearance Urine pH Ur Specific [place] Urine Protein Urine Glucose (UA) Urine Ketones Urine Blood Urine Nitrite Urine Bilirubin Urine Urobilinogen Ur Leukocyte Esterase Urine RBC Urine WBC Ur Squamous Epith Cells Urine Bacteria Urine Mucus Urine Opiates Screen Ur Oxycodone Screen Urine Methadone Screen Ur Barbiturates Screen U Tricyclic Antidepress Ur Phencyclidine Scrn Ur Amphetamines Screen U Methamphetamines Scrn U Benzodiazepines Scrn Urine Cocaine Screen U Marijuana (THC) Screen Ur Drug Screen Comment SARS-CoV-2 (PCR) HIV 1&2 Ab/P24 Ag 4thGn Negative Influenza Type A (PCR) Influenza Type B (PCR) RSV (PCR) Lab Acknowledgement Test Added
--- NOTE | 2024-11-24 14:16 | PC.NURSE ---
End of Student Shift: Pt is A/Ox4, though very tired. Ax1 to the bathroom. VSS. Consistent complaint of headache at 9, and back pain at 7. Acetaminophen given, but no noted decrease in pain. Consistent nausea, IV Ondansetron and IV Compazine given, but little improvement noted although sleeping throughout the day. Stool sample collected and pending. Not tolerating activity well. Decreased appetite and next to no PO fluids. 0.9% NaCl flowing at 125 ml/hr. Call light within reach, but no calls. --Chon Woodard, SN
--- NOTE | 2024-11-24 19:33 | PC.NURSE ---
Nursing Care Hours: [id number] Pt this shift calm and cooperative. Drowsy and oriented. Pain reported to low back, tolerating well. VSS, afebrile. One loose stool. Ate popcicle without issue. Slept most all of shift. Pt mom here at beside.
--- NOTE | 2024-11-24 20:32 | P.CCN_ITS ---
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 I added Flagyl 500 mg IV Q 8 hours to treat Entamoeba histolytica infection May consider ID consult and an intraluminal agent such as paromomycin or iodoquinol after treatment w/ Flagyl to eliminate amoebic cysts from the intestine.
[2024-11-24] MEDS: metroNIDAZOLE 500 MG/100 ML PIGGYBACK 100 MG IVPB (21:26)
[2024-11-24] MEDS: cefTRIAXone 1 GM in 0.9 % SODIUM CHLORIDE Mini-bag 100 ML IVPB (22:21)
[2024-11-25] VITALS (9 sets, daily range): BP systolic 110–122; BP diastolic 60–74; PULSE 59–88; RESP 16; TEMP 36.5–37.2; O2SAT 99–100
[2024-11-25] MEDS: ACETAMINOPHEN 325 MG TABLET 650 MG PO ×3 (03:25→20:53)
--- NOTE | 2024-11-25 04:45 | PC.NURSE ---
Shift note: Patient has had 2x loose stool tonight. Pain level has been at 3/10 until this morning at 0330 when he reported 4/10 abdominal pain and headache. Tylenol 650mg given and was effective. No fever reported. Patient appeared sleepy and has been in bed throughout the night except when he needs to go BR. Mother has been patient throughout the night. Conscious, alert and oriented.
[2024-11-25] MEDS: metroNIDAZOLE 500 MG/100 ML PIGGYBACK 100 MG IVPB (04:53)
[2024-11-25 06:53] LABS: Basophils Absolute Auto 0.04 K/uL (0.00-0.30); Basophils Percent Auto 0.5 % (0.0-3.0); Eosinophils Absolute Auto 0.08 K/uL (0.00-0.50); Hematocrit* 39.4 % (37.0-53.0); Immature Granulocytes Abs Auto 0.02 K/uL (0.00-0.30); Immature Granulocytes Pct Auto 0.2 %; Lymphocytes Absolute Auto 1.99 K/uL (0.90-2.90); Lymphocytes Percent Auto 23.7 % (20-44); Mean Corpuscular HGB Conc 33 gm/dL (32-36); Mean Corpuscular Hemoglobin 29 pg (26-34); Mean Corpuscular Volume 88 fL (80-100); Monocytes Percent Auto 9.4 % (0.0-11.0); Neutrophils Absolute Auto 5.47 K/uL (1.7-7.0); Neutrophils Percent Auto 65.2 % (42.0-72.0); Platelet Count* 206 K/uL (140-440); RDW Coefficient of Variation % 13.2 % (11.5-15.5); Red Blood Count* 4.46 m/uL (4.30-5.90); White Blood Count* 8.39 K/uL (4.50-11.00)
[2024-11-25 06:54] LABS: Slide Review Reflex No
[2024-11-25 07:02] LABS: Chloride* 108 mmol/L (96-114)
[2024-11-25 07:03] LABS: Potassium* 3.5 mmol/L (3.6-5.1); Sodium* 138 mmol/L (135-149)
[2024-11-25 07:06] LABS: Anion Gap 7 mEq/L (7-15); Blood Urea Nitrogen* 7 mg/dL (5-24); Calcium* 8.3 mg/dL (8.4-10.6); Carbon Dioxide* 23 mmol/L (20-32); Creatinine* 1.3 mg/dL (0.5-1.5); Est. Creatinine Clearance* 87.69; Estimated Glomerular Filt Rate 81 ml/min; Glucose* 90 mg/dL (60-115)
[2024-11-25 07:09] LABS: C Reactive Protein* 6.8 mg/dL (0.5-1.0)
[2024-11-25] MEDS: 0.9 % SODIUM CHLORIDE 1000 ml 1,000 ML 125 ML IV (08:06)
[2024-11-25] MEDS: AZITHROMYCIN 250 MG TABLET 500 MG PO (09:29)
[2024-11-25] MEDS: SODIUM CHLORIDE 0.9 % (FLUSH) 10 ML SYRINGE 5 ML IVF ×2 (09:30→21:01)
[2024-11-25] MEDS: 5 % DEX/0.45 SOD CHL+KCL20 mEq 1,000 ML 125 ML IV ×2 (11:19→21:44)
[2024-11-25] MEDS: LACTOBACILLUS ACIDOPHILUS 1 TABLET 2 TAB PO ×2 (12:03→18:27)
--- NOTE | 2024-11-25 16:40 | P.IMPN_ITS ---
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 a lot of times this is asymptomatic but should be treated. she recommended partner get tested and treated even if not having symptoms. Status: Acute (3) Campylobacter intestinal infection: Problem comment: ID thought this is likely making him acutely ill. Oral Azithro for three days. Good handwashing. Status: Acute (4) Norovirus: Problem comment: -Could be acute but ID notes this could be a distant/previous infection. supportive regardless underway. Status: Acute (5) Acute kidney injury: Problem comment: Likely secondary to pre renal azotemia Mostly resolved after fluid resuscitation, 1.9 down to 1.4 creatinine - today down to 1.3. Baseline appears to be 1. Status: Acute Subjective Date Seen: 11/25/24 Interval history: Day #: 3 CC: Sepsis presentation with acute gastroenteritis 24 HOUR UPDATE: improving. more awake today; still having copious diarrhea. less nausea and more hungry. afebrile x 24 hours now. Notable Labs, Micro, Rads, Interventions: His vital signs have normalized. He is afebrile. His blood pressure is more consistently above 100 systolic. His pulse rate is likely now at his baseline 50s and 60s. Laboratory rate 16. He is satting 100% on room air. Weight is 72 kilos Elevated white blood cell count is down trending. Hemoglobin stable. Mildly hypokalemic today. CRP is down trending. Negative drug screen, negative HIV [facility] resulted the enteric pathogen and virus panel PCR This showed positive Campylobacter, norovirus and entamoeba histolytica CT abdomen pelvis showed only fluid filled colon which is likely his diarrhea illness Blood cultures remain negative to date Objective: Looks more awake today a little bit more interactive. Has not yet been up walking. Vitals: see above Lungs: Clear. Cardiac: S1S2. Abdomen: soft. No guarding. Disposition/Potential discharge - Home to the dorms when improved Today I spent 50minutes seeing the patient, reviewing Expanse and EPIC notes/diagnostics, discussing the care plan with our care time that includes social work, PT/OT, pharmacy, RT, senior living and documenting my impressions and plan in the medical record. Exam Const: Vital Signs, click to edit/add: Vital Signs - 24 hr 11/24/24 19:00 11/24/24 22:27 11/24/24 22:27 Temperature 98.6 F 98.6 F Pulse Rate Pulse Rate [Pulse Oximeter] 89 78 78 Respiratory Rate 16 16 16 Blood Pressure [Ri ght Arm] 113/67 102/50 L Pulse Oximetry 100 97 Oxygen Delivery Me thod Room Air Room Air 11/24/24 23:00 11/25/24 03:00 11/25/24 07:00 Temperature 99 F Pulse Rate 72 74 Pulse Rate [Pulse Oximeter] 88 Respiratory Rate 16 Blood Pressure [Ri ght Arm] 121/64 Pulse Oximetry 99 Oxygen Delivery Me thod Room Air 11/25/24 08:01 11/25/24 11:00 11/25/24 15:00 Temperature 98.0 F 97.7 F Pulse Rate Pulse Rate [Pulse Oximeter] 75 77 64 Respiratory Rate 16 16 16 Blood Pressure [Ri ght Arm] 111/66 115/60 Pulse Oximetry 99 100 Oxygen Delivery Me thod Room Air Room Air 11/25/24 15:00 11/25/24 15:00 Temperature 97.8 F Pulse Rate 59 L Pulse Rate [Pulse Oximeter] 64 Respiratory Rate 16 Blood Pressure [Ri ght Arm] 110/71 Pulse Oximetry 99 Oxygen Delivery Me thod Room Air Labs Labs: Laboratory Results - last 24 hr 11/25/24 06:21 WBC 8.39 RBC 4.46 Hgb 13.0 L Hct 39.4 MCV 88 MCH 29 MCHC 33 RDW Coeff of Laxmi 13.2 Plt Count 206 Neut % (Auto) 65.2 Lymph % (Auto) 23.7 [place] % (Auto) 9.4 Eos % (Auto) 1.0 Baso % (Auto) 0.5 Neut # (Auto) 5.47 Lymph # (Auto) 1.99 [place] # (Auto) 0.80 Eos # (Auto) 0.08 Baso # (Auto) 0.04 Abs Immat Gran (auto) 0.02 Imm/Tot Granulo (auto) 0.2 Sodium 138 Potassium 3.5 L Chloride 108 Carbon Dioxide 23 Anion Gap 7 BUN 7 Creatinine 1.3 Estimated Creat Clear 87.69 Estimated GFR 81 Glucose 90 Calcium 8.3 L C-Reactive Protein 6.8 H
--- NOTE | 2024-11-25 18:42 | PC.NURSE ---
Pt is doing well today. VSS. Afebrile. Pt denies pain and nausea. Tolerating regular diet well. Pt continues to have diarrhea, although decreasing in frequency. Pt is more alert this evening and states he is getting his energy back. Pt's mom is at bedside, pt is resting well at this time.
[2024-11-26] VITALS (11 sets, daily range): BP systolic 114–125; BP diastolic 59–83; PULSE 49–95; RESP 16–18; TEMP 36.4–36.8; O2SAT 97–98
[2024-11-26 04:38] LABS: Adenovirus PCR Not Detected; Astrovirus PCR Not Detected; Campylobacter PCR Detected; Cryptosporidium PCR Not Detected; Cyclospora cayetanensis PCR Not Detected; Entamoeba histolytica PCR Not Detected; Enteroaggregative E coli PCR Not Detected; Enteropathogenic E coli PCR Not Detected; Enterotoxigenic E coli PCR Not Detected; Giardia lamblia PCR Not Detected; Norovirus Gi/GII PCR Not Detected; Plesiomonas shig PCR Not Detected; Rotavirus A PCR Not Detected; Salmonella PCR Not Detected; Sapovirus PCR Not Detected; Shiga toxin E coli PCR Not Detected; Shigella/Enteroinvasive E coli Not Detected; Vibrio PCR Not Detected; Vibrio cholerae PCR Not Detected; Yersinia enterocolitica PCR Not Detected
[2024-11-26] MEDS: 5 % DEX/0.45 SOD CHL+KCL20 mEq 1,000 ML 125 ML IV (06:29)
[2024-11-26 06:30] LABS: Basophils Absolute Auto 0.03 K/uL (0.00-0.30); Basophils Percent Auto 0.6 % (0.0-3.0); Eosinophils Absolute Auto 0.18 K/uL (0.00-0.50); Eosinophils Percent Auto 3.8 % (0.0-7.0); Hematocrit* 40.7 % (37.0-53.0); Hemoglobin* 13.6 gm/dL (13.5-17.5); Lymphocytes Absolute Auto 1.99 K/uL (0.90-2.90); Lymphocytes Percent Auto 41.9 % (20-44); Mean Corpuscular HGB Conc 33 gm/dL (32-36); Mean Corpuscular Hemoglobin 29 pg (26-34); Mean Corpuscular Volume 88 fL (80-100); Monocytes Percent Auto 12.4 % (0.0-11.0); Neutrophils Percent Auto 41.3 % (42.0-72.0); Platelet Count* 218 K/uL (140-440); RDW Coefficient of Variation % 13.1 % (11.5-15.5); Red Blood Count* 4.65 m/uL (4.30-5.90); White Blood Count* 4.75 K/uL (4.50-11.00)
[2024-11-26 06:34] LABS: Slide Review Reflex No
[2024-11-26 06:45] LABS: Albumin* 3.6 g/dL (3.3-5.0); Chloride* 107 mmol/L (96-114); Potassium* 3.5 mmol/L (3.6-5.1); Sodium* 139 mmol/L (135-149)
[2024-11-26 06:47] LABS: Blood Urea Nitrogen* 5 mg/dL (5-24); Creatinine* 1.1 mg/dL (0.5-1.5); Est. Creatinine Clearance* 103.64; Estimated Glomerular Filt Rate 99 ml/min
--- NOTE | 2024-11-26 06:47 | PC.NURSE ---
End of shift report : VSS. Afebrile. At the beginning of the shift patient stated he had a headache and rated it a 4, prn pain med offered and given with relief. Neuros are intact. Pt stated he had intermittent dizziness when ambulating to the bathroom, MD Sanchez notified, no new orders. Pt ambulates SBA. Pt continues to have diarrhea. Denies nausea and vomiting.?Tolerating regular diet. Pt?s mom is at bedside.?
[2024-11-26 06:48] LABS: Alanine Aminotransferase* 13 U/L (4-50); Alkaline Phosphatase* 51 U/L (40-150); Aspartate Amino Transferase* 24 U/L (12-35); Bilirubin Total* 0.5 mg/dL (0.1-1.5); Carbon Dioxide* 24 mmol/L (20-32)
[2024-11-26 06:49] LABS: Glucose* 102 mg/dL (60-115)
[2024-11-26 06:52] LABS: Anion Gap 8 mEq/L (7-15)
[2024-11-26] MEDS: metroNIDAZOLE 500 MG TABLET 750 MG PO ×3 (09:15→20:52)
[2024-11-26] MEDS: LACTOBACILLUS ACIDOPHILUS 1 TABLET 2 TAB PO ×2 (09:15→18:58)
[2024-11-26] MEDS: POTASSIUM BICARB 25 MEQ EFFERVESCENT TAB PO (09:15)
[2024-11-26] MEDS: AZITHROMYCIN 250 MG TABLET 500 MG PO (09:15)
--- NOTE | 2024-11-26 11:29 | P.DS_ITS ---
DS: Providers Provider Time Seen by Provider: 08:45 Date Seen: 11/27/24 Date of admission: 11/24/24 07:46 Primary care physician: Not a Local Provider Admitting Clinician: Laura Amador MD Consults: 11/25/24 08:54 Consult to Infectious Diseases [CONS] Routine Comment: Look at that GI Pathogen report! Consulting Provider: Melody TeleInfectious Disease Attending Physician on discharge: Faby Glynn MD Date of Discharge: 11/27/24 DS: Diagnosis Discharge Diagnosis (1) Sepsis: Status: Resolved Problem details: -source is likely either viral or bacterial gastroenteritis, potentially bacteremic -patient meets criteria for sepsis with white blood cells and tachycardia -lactic acid elevated at 2.2 initially and now is normal at 0.7 -2 blood cultures are negative to date -patient has had normal saline fluid resuscitation -patient has received 1 oral dose of azithromycin and continues to receive 1 g ceftriaxone Q 24 - 11/26 Sepsis has resolved. BC remain NGTD - 11/27 BC x 2 NGTD (2) Acute kidney injury: Status: Resolved Problem details: Likely secondary to pre renal azotemia Cr 1.9 -> 1.4 -> 1.3 -> 1.1. (3) Dehydration: Status: Resolved Problem details: - Stop IVF. Monitor oral fluid intake. If patient has emesis, may need resumption of IVF. (4) Campylobacter intestinal infection: Status: Acute Problem details: ID thought this is likely making him acutely ill. Oral Azithro for three days, complete (11/24, 11/25, 11/26). Good handwashing. (5) Norovirus: Status: Acute Problem details: -Could be acute but ID notes this could be a distant/previous infection. supportive regardless underway. - 11/27 GI symptoms improving. Mild persistent diarrhea and periumbilical ab dominal pain. Denies nausea or emesis. Ate steak tacos last night (very hungry). 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 a lot of times this is asymptomatic but should be treated. she recommended partner get tested and treated even if not having symptoms. - 11/26 Treating with flagyl 750 TID, Day 08/29. Trialing oral dosing today, but he is nausea. If he has emesis, may need to be switched back to IV. Keep as inpatient today to see if he can tolerate PO flagyl. Paromyomycin x 10 days when flagyl complete. - 11/27 Paromyomycin prescription resent to [facility]. They can get this in as soon as tomorrow. Patient would like me to send Flagyl and zofran to [facility] here in town (done). I spoke with patient, his mother, and his partner that if, for some reason, the paromyomycin is not possible to obtain, he could try making an appointment with infectious disease (or go to his school clinic to get a referral) to help determine how to obtain it or if there is another option for treatment. (7) Bradycardia: Status: Acute Problem details: EKG reassuring. 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 He states that he had about 3 watery bowel movements without blood or mucus. He also added that he had nausea and had been vomiting more than 10 times. Patient states that he has some abdominal discomfort but not pain, no sick contacts and no history of travel outside the states. No history of chronic diarrhea. No history of STDs. No history of alcohol, street drugs or marijuana use. Denies neck stiffness or photophobia. At the ED, Patient was found to be feverish with temperature of 102.9, tachycardic and acidotic with low bicarb at 16, mild elevation of the anion gap, elevated lactic acid at 2.2 and elevated white blood cells. CT of the abdomen without contrast did not show any acute pathology. Patient was given 2 L of IV fluids at the ED in addition to 1 dose of Ativan and Zofran because he was tachypneic upon presentation, which has improved after Ativan. Stool studies resulted Campylobacter sp., Norovirus, and Entamoeba hystolytica. ID was consulted. See details above. Sepsis and dehydration are resolved and GI symptoms have improved. He is able to tolerate a general diet very well. His partner, Rolando, was in the room with him this morning (11/27), and is aware of the Entamoeba infection and recommendation that he get a stool test for it. They note there is a free clinic in [place], where he lives, that he will go to to get tested. Time Spent with Patient Time attestation: Total time spent providing and/or coordinating discharge services: Today I spent 50 minutes seeing the patient, discussing with the patient, his mother, and his partner, reviewing Expanse and EPIC notes/diagnostics/labs, discussing the care plan with our care team that includes social work, PT/OT, pharmacy, RT, senior care and documenting my impressions and plan in the medical record. Exam Narrative: Exam Narrative: General: No acute distress. Sleeping, easily arousable. Sat up right away. Awake, alert, oriented x3. No pallor. No jaundice. Partner is in the bedside chair. Oropharynx: Clear. Mucous membranes moist. Cardiovascular: Regular rate and rhythm. No murmurs, gallops, or rubs. Respiratory: Clear to auscultation bilaterally. No wheezes or crackles. Abdomen: Bowel sounds present. Soft, nondistended, mildly tender to palpation around the umbilicus, better than yesterday, no rebound tenderness or guarding. No hepatosplenomegaly. Extremities: No lower extremity edema. Const: Vital Signs, click to edit/add: Vital Signs - 24 hr 11/25/24 15:00 11/25/24 15:00 11/25/24 15:00 Temperature 97.8 F Pulse Rate 59 L Pulse Rate [Pulse Oximeter] 64 64 Pulse Rate [orthos tatic lying] Pulse Rate [orthos tatic sitting] Pulse Rate [orthos tatic standing] Respiratory Rate 16 16 Blood Pressure [Ri ght Arm] 110/71 Blood Pressure [or thostatic lying] Blood Pressure [or thostatic sitting] Blood Pressure [or thostatic standing ] Pulse Oximetry 99 Oxygen Delivery Me thod Room Air 11/25/24 19:00 11/25/24 21:37 11/25/24 22:23 Temperature 97.8 F 98.4 F Pulse Rate Pulse Rate [Pulse Oximeter] 63 63 67 Pulse Rate [orthos tatic lying] Pulse Rate [orthos tatic sitting] Pulse Rate [orthos tatic standing] Respiratory Rate 16 16 16 Blood Pressure [Ri ght Arm] 122/74 120/63 Blood Pressure [or thostatic lying] Blood Pressure [or thostatic sitting] Blood Pressure [or thostatic standing ] Pulse Oximetry [facility] [address] [facility] 11/25/24 22:27 11/26/24 02:36 11/26/24 07:21 Temperature 97.8 F Pulse Rate 65 49 L Pulse Rate [Pulse Oximeter] 68 Pulse Rate [orthos tatic lying] Pulse Rate [orthos tatic sitting] Pulse Rate [orthos tatic standing] Respiratory Rate 16 Blood Pressure [Ri ght Arm] 114/59 L Blood Pressure [or thostatic lying] Blood Pressure [or thostatic sitting] Blood Pressure [or thostatic standing ] Pulse Oximetry [address] [facility] [address] 11/26/24 07:45 11/26/24 07:45 11/26/24 09:04 Temperature 97.5 F L Pulse Rate Pulse Rate [Pulse Oximeter] 56 L 56 L Pulse Rate [orthos tatic lying] 54 L Pulse Rate [orthos tatic sitting] 59 L Pulse Rate [orthos tatic standing] 73 Respiratory Rate 18 18 Blood Pressure [Ri ght Arm] 114/71 Blood Pressure [or thostatic lying] 114/71 Blood Pressure [or thostatic sitting] 116/75 Blood Pressure [or thostatic standing ] 125/83 Pulse Oximetry [address] [facility] [address] 11/26/24 11:25 Temperature 97.5 F L Pulse Rate Pulse Rate [Pulse Oximeter] 81 Pulse Rate [orthos tatic lying] Pulse Rate [orthos tatic sitting] Pulse Rate [orthos tatic standing] Respiratory Rate 18 Blood Pressure [Ri ght Arm] 121/59 L Blood Pressure [or thostatic lying] Blood Pressure [or thostatic sitting] Blood Pressure [or thostatic standing ] Pulse Oximetry [address] [facility] [address] DS: Data Data Completed and Pending Completed studies during hospitalization: 11/26/2024 EKG: Sinus bradycardia, 57 beats per minute, rightward axis deviatio n. When compared to an EKG done 03/20/2023, it is similar with the exception of heart rate was 93 beats per minute in 2022. Labs on day of discharge: Labs from last 24 hours 11/26/24 11/24/24 06:13 01:51 WBC 4.75 RBC 4.65 Hgb 13.6 Hct 40.7 MCV 88 MCH 29 MCHC 33 RDW Coeff of Laxmi 13.1 Plt Count 218 Neut % (Auto) 41.3 L Lymph % (Auto) 41.9 [place] % (Auto) 12.4 H Eos % (Auto) 3.8 Baso % (Auto) 0.6 Neut # (Auto) 2.00 Lymph # (Auto) 1.99 [place] # (Auto) 0.60 Eos # (Auto) 0.18 Baso # (Auto) 0.03 Abs Immat Gran (auto) 0.00 Imm/Tot Granulo (auto) 0.0 Sodium 139 Potassium 3.5 L Chloride 107 Carbon Dioxide 24 Anion Gap 8 BUN 5 Creatinine 1.1 Estimated Creat Clear 103.64 Estimated GFR 99 Glucose 102 Calcium 9.0 Total Bilirubin 0.5 AST 24 ALT 13 Alkaline Phosphatase 51 C-Reactive Protein 4.0 H Total Protein 6.0 Albumin 3.6 Stl C. cayetanensis PCR Not Detected Stool Rotavirus A PCR Not Detected Stool Adenovirus (PCR) Not Detected Stool Astrovirus (PCR) Not Detected Stool Campylobacter PCR Detected A Stool Cryptosporidium PCR Not Detected Stl E.coli Shiga Tox PCR Not Detected Stool E coli O157 PCR N/A Stl Enterotoxigenic E PCR Not Detected Stool EPEC (PCR) Not Detected Stool EAEC (PCR) Not Detected Stl E. histolytica PCR Not Detected Stool Giardia Lamblia PCR Not Detected Stl P. shigelloides PCR Not Detected Stool Salmonella PCR Not Detected Stool Sapovirus (PCR) Not Detected Stl Shigella/EIEC PCR Not Detected St Y.enterocolitica PCR Not Detected Stool Vibrio (PCR) Not Detected Stl Vibrio cholerae PCR Not Detected Stl Norovirus GI/GII PCR Not Detected Preliminary micro results at discharge 11/23/24 19:53 Blood Culture - Preliminary Blood NO GROWTH AFTER 48 HOURS 11/23/24 19:57 Blood Culture - Preliminary Blood NO GROWTH AFTER 48 HOURS Discharge Plan Discharge Disposition: Home, Self-Care Date of Admission: 11/24/24 07:46 Attending Provider on Discharge: Faby Glynn Consulting Providers: Laurel Walton; Molly Larios Primary Care Provider: Provider,Not a Local Condition: Improved Anticipated Discharge Date/Time: 11/27/24 11:00 Discharge Medications: New paromomycin 250 mg capsule 750 mg PO TID 10 Days Qty: 90 0RF metronidazole 500 mg Tablet 750 mg PO TID 8 Days Qty: 36 0RF ondansetron 4 mg Tablet,Disintegrating 4 mg PO Q8H PRNQty: 10 0RF Lactobacillus acidophilus 0.5 mg (100 million cell) Tablet 1 mg PO TIDWM Qty: 120 0RF Held minocycline 50 mg capsule 50 mg PO QDAY Hold Instructions: Resume on 12/18/24. Hold until done with other antibiotics Discontinued polyethylene glycol 3350 [Miralax] 17 gram/dose powder 4 g PO ONCE ondansetron 4 mg tablet,disintegrating 4 mg PO Q8H PRN (Reason: nausea and vomiting) Qty: 14 0RF Discharge Orders: Discharge Order (Routine); Ordered 11/27/24 Ordered By: Faby Glynn Additional Instructions: For the amoeba infection (entamoeba histolytica) - Finish the metronidazole as prescribed. Then take the 10 days of paromomycin, starting the day after the metronidazole is complete. For the camplyobacter infection - you completed the azithromycin for this. The Norovirus gets better with general support and did not need specific therapy. Your partner should be tested and treated as well. Wash your hands frequently, especially after using the bathroom, to decrease spread to others. Return if vomiting returns and you are unable to keep food or liquids down or if the diarrhea or abdominal pain worsens or if you develop a fever or rash. If you are having difficulty obtaining paromyocin from the pharmacy we have sent it to, please call us. Activity Level: No Restrictions Discharge Diet: Regular Follow Up Appointments: Provider,Not a Local [Primary Care Provider] - [facility] Info Instructions
[2024-11-26] MEDS: ACETAMINOPHEN 325 MG TABLET 650 MG PO (11:41)
[2024-11-26] MEDS: ONDANSETRON ODT 4 MG TAB PO (11:46)
--- NOTE | 2024-11-26 12:53 | PM.IMPN1 ---
Assessment and Plan Assessment and plan (1) Sepsis: Problem comment: -source is likely either viral or bacterial gastroenteritis, potentially bacteremic -patient meets criteria for sepsis with white blood cells and tachycardia -lactic acid elevated at 2.2 initially and now is normal at 0.7 -2 blood cultures are negative to date -patient has had normal saline fluid resuscitation -patient has received 1 oral dose of azithromycin and continues to receive 1 g ceftriaxone Q 24 - 11/26 Sepsis has resolved. 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 a lot of times this is asymptomatic but should be treated. she recommended partner get tested and treated even if not having symptoms. - 11/26 Treating with flagyl 750 TID, Day 08/29. Trialing oral dosing today, but he is nausea. If he has emesis, may need to be switched back to IV. Keep as inpatient today to see if he can tolerate PO flagyl. Paromyomycin x 10 days when flagyl complete. Status: Acute (3) Campylobacter intestinal infection: Problem comment: ID thought this is likely making him acutely ill. Oral Azithro for three days, complete (11/24, 11/25, 11/26). Good handwashing. Status: Acute (4) Norovirus: Problem comment: -Could be acute but ID notes this could be a distant/previous infection. supportive regardless underway. Status: Acute (5) Acute kidney injury: Problem comment: Likely secondary to pre renal azotemia Cr 1.9 -> 1.4 -> 1.3 -> 1.1. Status: Resolved (6) Bradycardia: Problem comment: EKG reassuring. 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 Status: Acute (7) Dehydration: Problem comment: - Stop IVF. Monitor oral fluid intake. If patient has emesis, may need resumption of IVF. Status: Resolved (8) Hypokalemia: Problem comment: - mild, replace orally Status: Acute Total Time Spent Total Time Spent: Today I spent 50minutes seeing the patient, answering questions from the patient and his mother, reviewing Expanse and [facility] notes/diagnostics/labs, discussing the care plan with our care team that includes social work, PT/OT, pharmacy, RT, group home and documenting my impressions and plan in the medical record. Subjective Time Seen by Provider: 08:00 Date Seen: 11/26/24 Interval history: Peter feels a bit better today. Dizziness with standing is improving. He is able to tolerate regular diet, but was nauseous (no emesis) after getting oral flagyl this morning. Complains of ongoing diarrhea and mild abdominal discomfort. He also c/o headaches. He gets headaches chronically, 3x per week, and these are often one-sided, wrapping around from back of neck to side of head and mandaeism, associated with photophobia, phonophobia, and fatigue, no nausea. He rests and takes acetaminophen for these. His mother is very concerned about how he will do in the dorm once discharged. They had many questions about his symptoms, the different organisms found and treatment. He wanted to know when he could go back to going to the gym to workout Exam Narrative: Exam Narrative: General: No acute distress. Laying in bed in a dark room. Mother is in the bedside chair. Awake, alert, oriented x3. No pallor. No jaundice. Oropharynx: Clear. Mucous membranes moist. Cardiovascular: Regular rate and rhythm. No murmurs, gallops, or rubs. Respiratory: Clear to auscultation bilaterally. No wheezes or crackles. Abdomen: Bowel sounds present. Soft, nondistended, mildly tender to palpation around the umbilicus, no rebound tenderness or guarding. No hepatosplenomegaly. Extremities: No lower extremity edema. Const: Vital Signs, click to edit/add: Vital Signs - 24 hr 11/25/24 15:00 11/25/24 15:00 11/25/24 15:00 Temperature 97.8 F Pulse Rate 59 L Pulse Rate [Pulse Oximeter] 64 64 Pulse Rate [orthos tatic lying] Pulse Rate [orthos tatic sitting] Pulse Rate [orthos tatic standing] Respiratory Rate 16 16 Blood Pressure [Ri ght Arm] 110/71 Blood Pressure [or thostatic lying] Blood Pressure [or thostatic sitting] Blood Pressure [or thostatic standing ] Pulse Oximetry 99 Oxygen Delivery Me thod Room Air 11/25/24 19:00 11/25/24 21:37 11/25/24 22:23 Temperature 97.8 F 98.4 F Pulse Rate Pulse Rate [Pulse Oximeter] 63 63 67 Pulse Rate [orthos tatic lying] Pulse Rate [orthos tatic sitting] Pulse Rate [orthos tatic standing] Respiratory Rate 16 16 16 Blood Pressure [Ri ght Arm] 122/74 120/63 Blood Pressure [or thostatic lying] Blood Pressure [or thostatic sitting] Blood Pressure [or thostatic standing ] Pulse Oximetry 99 99 Oxygen Delivery Oh thod Room Air Room Air 11/25/24 22:27 11/26/24 02:36 11/26/24 07:21 Temperature 97.8 F Pulse Rate 65 49 L Pulse Rate [Pulse Oximeter] 68 Pulse Rate [orthos tatic lying] Pulse Rate [orthos tatic sitting] Pulse Rate [orthos tatic standing] Respiratory Rate 16 Blood Pressure [Ri ght Arm] 114/59 L Blood Pressure [or thostatic lying] Blood Pressure [or thostatic sitting] Blood Pressure [or thostatic standing ] Pulse Oximetry 98 Oxygen Delivery Oh thod Room Air 11/26/24 07:45 11/26/24 07:45 11/26/24 09:04 Temperature 97.5 F L Pulse Rate Pulse Rate [Pulse Oximeter] 56 L 56 L Pulse Rate [orthos tatic lying] 54 L Pulse Rate [orthos tatic sitting] 59 L Pulse Rate [orthos tatic standing] 73 Respiratory Rate 18 18 Blood Pressure [Ri ght Arm] 114/71 Blood Pressure [or thostatic lying] 114/71 Blood Pressure [or thostatic sitting] 116/75 Blood Pressure [or thostatic standing ] 125/83 Pulse Oximetry 98 Oxygen Delivery Oh thod Room Air 11/26/24 11:25 Temperature 97.5 F L Pulse Rate Pulse Rate [Pulse Oximeter] 81 Pulse Rate [orthos tatic lying] Pulse Rate [orthos tatic sitting] Pulse Rate [orthos tatic standing] Respiratory Rate 18 Blood Pressure [Ri ght Arm] 121/59 L Blood Pressure [or thostatic lying] Blood Pressure [or thostatic sitting] Blood Pressure [or thostatic standing ] Pulse Oximetry 98 Oxygen Delivery Oh thod Room Air Labs Labs: Laboratory Results - last 24 hr 11/24/24 11/26/24 01:51 06:13 WBC 4.75 RBC 4.65 Hgb 13.6 Hct 40.7 MCV 88 MCH 29 MCHC 33 RDW Coeff of Laxmi 13.1 Plt Count 218 Neut % (Auto) 41.3 L Lymph % (Auto) 41.9 [place] % (Auto) 12.4 H Eos % (Auto) 3.8 Baso % (Auto) 0.6 Neut # (Auto) 2.00 Lymph # (Auto) 1.99 [place] # (Auto) 0.60 Eos # (Auto) 0.18 Baso # (Auto) 0.03 Abs Immat Gran (auto) 0.00 Imm/Tot Granulo (auto) 0.0 Sodium 139 Potassium 3.5 L Chloride 107 Carbon Dioxide 24 Anion Gap 8 BUN 5 Creatinine 1.1 Estimated Creat Clear 103.64 Estimated GFR 99 Glucose 102 Calcium 9.0 Total Bilirubin 0.5 AST 24 ALT 13 Alkaline Phosphatase 51 C-Reactive Protein 4.0 H Total Protein 6.0 Albumin 3.6 Stl C. cayetanensis PCR Not Detected Stool Rotavirus A PCR Not Detected Stool Adenovirus (PCR) Not Detected Stool Astrovirus (PCR) Not Detected Stool Campylobacter PCR Detected A Stool Cryptosporidium PCR Not Detected Stl E.coli Shiga Tox PCR Not Detected Stool E coli O157 PCR N/A Stl Enterotoxigenic E PCR Not Detected Stool EPEC (PCR) Not Detected Stool EAEC (PCR) Not Detected Stl E. histolytica PCR Not Detected Stool Giardia Lamblia PCR Not Detected Stl P. shigelloides PCR Not Detected Stool Salmonella PCR Not Detected Stool Sapovirus (PCR) Not Detected Stl Shigella/EIEC PCR Not Detected St Y.enterocolitica PCR Not Detected Stool Vibrio (PCR) Not Detected Stl Vibrio cholerae PCR Not Detected Stl Norovirus GI/GII PCR Not Detected
--- NOTE | 2024-11-26 17:57 | PC.NURSE ---
End of shift. pt has been pleasant. he had a GERMAN and some nausea and got meds and relief for both. he said he was lightheaded this am but he has not been dizzy lightheaded when up. pt is up ab den. SL is patent. he is eating, drinking and voiding with no problems. mom is here and helpful. he had a shower. tele is Sinus Dago ?
--- NOTE | 2024-11-26 22:39 | PC.NURSE ---
Shift note: Patient is alert and oriented. No abdominal pain, headache, and diarrhea reported this shift. Patient appeared cheerful and seems to have regain strength. Ambulated independently in room. Mother and boyfriend has been with patient throughout the shift. Cooperated with treatment and care. Vitally stable.
[2024-11-27] MEDS: SODIUM CHLORIDE 0.9 % (FLUSH) 10 ML SYRINGE 5 ML IVF ×2 (00:05→08:58)
[2024-11-27 03:00] VITALS: BP 107/67; PULSE 61; RESP 16; TEMP 36.4; O2SAT 99
[2024-11-27] MEDS: ACETAMINOPHEN 325 MG TABLET 650 MG PO (04:15)
[2024-11-27 07:00] VITALS: PULSE 48
--- NOTE | 2024-11-27 07:01 | PC.NURSE ---
End of shift report [id number]: VSS. Afebrile. Denies pain and dizziness. Denies diarrhea this shift. Pt is tolerating regular diet. Ambulates ind. In room. Pt?s partner is present at the bedside. ??
[2024-11-27 07:35] VITALS: BP 108/62; PULSE 51; RESP 16; TEMP 36.7; O2SAT 99
[2024-11-27] MEDS: LACTOBACILLUS ACIDOPHILUS 1 TABLET 2 TAB PO (08:56)
[2024-11-27] MEDS: metroNIDAZOLE 500 MG TABLET 750 MG PO (08:56)
--- NOTE | 2024-11-27 13:03 | PC.NURSE ---
Pt doing well today. VSS. Afebrile. Denies nausea and dizziness. Tolerating regular diet well. Pt was given information on oral antibiotics that he is discharging with and states he is comfortable with this information. Pt belongings and discharge information signed. Education reviewed, no questions or concerns at this time. Pt is discharging home via mom and significant other at 1310.
--- NOTE | 2024-12-05 17:50 | PC.NURSE ---
Patient called with difficulty picking up prescription. Talked with [facility] pharmacy and they stated that they were unable to fill medication due to insurance. Insurance checked and is active. [facility] called and stated they have the medication available however the previous pharmacy needed to cancel their order since it currently appears as if the patient had filled it on 11/30. Patient updated with this information, told to call [facility] and cancel their order and then get in touch with [facility] pharmacy to pickling grader prescription, phone numbers of both pharmacies given to patient.
== END 2024-11-27 12:58 | disposition home or self-care (01) | DRG 720 ==
LOC: ED 19:01 → MEDSURG 19:35
PROVIDERS: Family Medicine; Admitting Provider Student in an Organized Health Care Education/Training Program; Emergency Provider Family Medicine; Visit Provider Student in an Organized Health Care Education/Training Program
DX: A41.9 Sepsis, unspecified organism (principal); A04.5 Campylobacter enteritis; N17.9 Acute kidney failure, unspecified; E86.0 Dehydration; R55 Syncope and collapse; A08.11 Acute gastroenteropathy due to Norwalk agent; A06.9 Amebiasis, unspecified; R00.1 Bradycardia, unspecified
CPT/HCPCS: 36415; 74176; 80048; 80053; 80306; 81001; 83605; 83690; 83735; 85025; 85027; 86140; 86703; 87040; 87505; 87637; 93005; 94761; 99284; 99285; A9270; G0378; J0131; J0696; J0780; J1836; J1885; J2060; J2405; J3480; J7030; J7120